=== PATIENT | female | born 1935 | race Hispanic/Latino ===

== ENCOUNTER 2017-02-03 18:32 | Emergency (ER) | payer MEDICARE ==
[2017-02-03 18:32] VITALS: BMI 38.6
[2017-02-03 18:45] VITALS: PULSE 89; O2SAT 97
--- NOTE | 2017-02-03 19:20 | ED PDOC ---
Lower Extremity Pain/Injury Time Seen by Provider: 02/03/17 19:05 Chief Complaint (Nursing): Lower Extremity Problem/Injury Chief Complaint (Provider): Right Foot Pain History Per: Patient History/Exam Limitations: no limitations Onset/Duration Of Symptoms: Hrs (just prior to arrival) Current Symptoms Are (Timing): Still Present Severity: Moderate Additional Complaint(s): Carola Stack is an 81 year old female, with a past medical history inclusive of HTN (coumadin compliant) and hyperlipidemia, who presents to the ED on 02/03/17 for the evaluation of moderate right foot pain that she has experienced since having fallen in her home earlier today as she was dusting a baseboard. Patient describes fall as her having tipped over secondary to her being unable to support her weight on the affected foot. Per son patient was able to ambulate a short distance since injury with the aid of a walker, though she reports using only a cane at baseline. Has medicated with Tylenol without relief. Of note, per son patient had fallen onto her buttocks at his house 2 weeks ago after stumbling down a set of deck stairs, no residual effects from injury. PMD: Dr. Greene Past Medical History Reviewed: Historical Data, Nursing Documentation, Vital Signs Vital Signs: Last Vital Signs Temp 98.8 F 02/03/17 18:43 Pulse 89 02/03/17 18:43 Resp 16 02/03/17 18:43 BP 186/80 H 02/03/17 18:43 Pulse Ox 97 02/03/17 18:43 - Medical History PMH: Deep Vein Thrombosis (left leg), HTN, Hyperlipidemia Denies: Depression - Surgical History Surgical History: Cholecystectomy - Family History Family History: States: Unknown Family Hx - Living Arrangements Living Arrangements: Alone (Senior Citizen Home) - Immunization History Hx Tetanus Toxoid Vaccination: No Hx Influenza Vaccination: Yes Hx Pneumococcal Vaccination: Yes - Home Medications Home Medications: Ambulatory Orders Medication Instructions Recorded Alprazolam [Xanax] 0.25 mg PO BID 10/31/13 Losartan/Hydrochlorothiazide 1 tab PO DAILY 01/18/15 [Losartan Potassium-Hydrochlorothiazide 12.5 M] Warfarin [Coumadin] 5 mg PO DAILY 01/18/15 Metoprolol Tartrate 50 mg PO DAILY 02/03/17 Walker [Rolling Walker] 1 dev XX PRN PRN #1 dev 02/03/17 - Allergies Allergies/Adverse Reactions: Allergies Allergy/AdvReac Type Severity Reaction Status Date / Time No Known Allergies Allergy Verified 02/03/17 18:43 Review of Systems Musculoskeletal: Positive for: Foot Pain (right) Physical Exam - Reviewed Nursing Documentation Reviewed: Yes Vital Signs Reviewed: Yes - Physical Exam Appears: Positive for: Non-toxic, No Acute Distress Extremity: Positive for: Tenderness (tenderness and ecchymosis noted to both medial/dorsal foot; b/l malleoli nontender). Negative for: Deformity Neurologic/Psych: Positive for: Alert, Oriented - ECG O2 Sat by Pulse Oximetry: 97 (RA) Pulse Ox Interpretation: Normal - Other Rad XR Right Ankle X-Ray: Interpreted by Me, Viewed By Me X-Ray Interpretation: see [facility] XR Right Foot X-Ray: Interpreted by Me, Viewed By Wa X-Ray Interpretation: see [facility] Medical Decision Making Medical Decision Makin:05 Initial Impression: foot contusion; will r/o fracture Initial Plan: * XR Right Ankle * XR Right Foot * Reevaluation XR show no evidence of fracture as reviewed by me. Will have podiatry evaluate patient at bedside. Scribe Attestation: Documented by Joyce Martínez, acting as a scribe for Leticia Lyn MD. Provider Scribe Attestation: All medical record entries made by the Scribe were at my direction and personally dictated by me. I have reviewed the chart and agree that the record accurately reflects my personal performance of the history, physical exam, medical decision making, and the department course for this patient. I have also personally directed, reviewed, and agree with the discharge instructions and disposition. Disposition - Clinical Impression Clinical Impression: Foot sprain - Disposition Referrals: Podiatry Clinic [Outside] Disposition: Routine/Home Disposition Time: 22:58 Condition: STABLE Additional Instructions: CONTINUE TYLENOL NEEDED FOR PAIN. FOLLOW-UP WITH PODIATRY CLINIC ON THURSDAY FOR REEVALUATION, CALL FOR APPOINTMENT. Prescriptions: Walker [Rolling Walker] 1 dev XX PRN PRN #1 dev PRN Reason: Pain, Mild (1-3) Instructions: Foot Sprain (ED)
--- NOTE | 2017-02-03 23:08 | CP.PCM.CON ---
History of Present Illness - History of Present Illness History of Present Illness: 81 year old female patient with PMHx of HTN, Hyperlipidemia was seen at bedside ED this evening after request for podiatry consultation. Patient states that she slipped and fell today at [facility], but does not recall exact orientation of right foot when she fell. She complains of mild pain to dorso- medial aspect of Right foot over the navicular, and points out mild bruising. Patient is present with her son and a grand daughter who states that she is able to ambulate with a rolling walker which she borrowed from her friend. Patient's son states that this is not the first time she fell while ambulating within a couple of months. She states that she has taken Tylenol for pain which helped to relieve pain. Patient has no other pedal complaints. Patient denies of any N/V/F/C or SOB today Past Patient History - Infectious Disease Hx of Infectious Diseases: None - Tetanus Immunizations Tetanus Immunization: Unknown - Past Social History Smoking Status: Never Smoked - CARDIAC Hx Hypertension: Yes - MUSCULOSKELETAL/RHEUMATOLOGICAL Hx Musculoskeletal Disorders: Yes Hx Falls: Yes - PSYCHIATRIC Hx Depression: No - SURGICAL HISTORY Hx Cholecystectomy: Yes - ANESTHESIA Hx Anesthesia: Yes Hx Anesthesia Reactions: No Meds Home Medications: Home Medication List Medication Instructions Recorded Confirmed Type Walker [Rolling Walker] 1 dev XX PRN PRN #1 dev 02/03/17 Rx Allergies/Adverse Reactions: Allergies Allergy/AdvReac Type Severity Reaction Status Date / Time No Known Allergies Allergy Verified 02/03/17 18:43 Physical Exam - Constitutional Appears: Well, Non-toxic, No Acute Distress - Extremities Exam Additional comments: Bilateral lower extremity exam DERM: No open wound noted. No active bleeding, no drainage. No erythema is noted. Mild ecchymosis is noted to dorso-medial aspect of Right foot at the level of navicular. VASC: Non-palpable DP and PT noted bilaterally secondary to chronic lymphedema. +2 pitting edema noted to bilateral lower extremities distal to knee. MOUSE BREEDER less than 3 seconds to all digits noted ORTHO: Pain on palpation to right mid-foot. Decreased ROM to joints distal to right ankle secondary to guarding. MMT 5/5 bilaterally NEURO: Gross sensation intact - Neurological Exam Neurological exam: Alert, Oriented x3 - Psychiatric Exam Psychiatric exam: Normal Affect, Normal Mood - Skin Skin Exam: Normal Color, Warm Results - Vital Signs Recent Vital Signs: Last Vital Signs Temp 98.8 F 02/03/17 18:43 Pulse 89 02/03/17 18:43 Resp 16 02/03/17 18:43 BP 166/84 H 02/03/17 19:52 Pulse Ox 97 02/03/17 22:01 Assessment & Plan - Assessment and Plan (Free Text) Assessment: 81 year old female patient presents with right foot sprain, pain and swelling Plan: Patient was seen, evaluated and treated with all questions and concerns addressed labs and vitals reviewed Xray of Right foot and ankle reveals no significant findings consistent with acute fracture discussed with attending Dr. Denise Modified Spann compression dressing applied to right lower extremity Surgical shoe applied to right foot Rx for walker given to patient per ED Patient was advised to weight bear as tolerated to right foot Patient was advised to keep the dressing clean dry and intact Patient to follow up with [facility] podiatry clinic this Thursday
[2017-02-03 23:47] VITALS: BP 166/82; RESP 18; TEMP 98.3
--- NOTE | 2017-02-04 14:25 | RAD ---
PROCEDURE: Right Ankle Radiographs. HISTORY: Fall injury COMPARISON: None FINDINGS: BONES: No acute fracture. Plantar and Achilles Tendon insertion calcaneal spurs JOINTS: Normal. No osteoarthritis. Ankle mortise maintained. Talar dome intact SOFT TISSUES: Lateral soft tissue swelling without adjacent distal fibular fracture. OTHER FINDINGS: None. IMPRESSION: Soft tissue swelling without acute articular or osseous abnormality.
--- NOTE | 2017-02-04 14:39 | RAD ---
PROCEDURE: Right Foot Radiographs. HISTORY: Trauma COMPARISON: None. FINDINGS: BONES: No acute fractures. JOINTS: Degenerative osteoarthritic changes. Multiple hammertoe sparing and SOFT TISSUES: Diffuse soft tissue swelling OTHER FINDINGS: None. IMPRESSION: Soft tissue swelling without acute articular or osseous abnormality.
== END 2017-02-03 23:45 | disposition home or self-care (01) ==
LOC: H.ER 18:32
DX: S99.911A Unspecified injury of right ankle, initial encounter (principal); W19.XXXA Unspecified fall, initial encounter; Y92.008 Other place in unspecified non-institutional (private) residence as the place of occurrence of the external cause; E78.5 Hyperlipidemia, unspecified; I10 Essential (primary) hypertension; Z79.01 Long term (current) use of anticoagulants; Z86.718 Personal history of other venous thrombosis and embolism

== ENCOUNTER 2017-04-25 17:57 | Inpatient (IN) | payer MEDICARE ==
[2017-04-25 17:57] VITALS: BMI 38.6
--- NOTE | 2017-04-25 18:47 | ED PDOC ---
HPI: Trauma/Fall - HPI Time Seen by Provider: 04/25/17 18:14 Chief Complaint (Nursing): Hip Pain Chief Complaint (Provider): Left buttock pain History Per: Patient Onset/Duration Of Symptoms: Days (x1, 04/24/17) Additional Complaint(s): Carola Stack is a 81 year old female with previous medical history of deep vein thrombosis and hypertension, who presents to the emergency department after a sudden onset of sharp, constant left buttock pain radiating to lower extremities after mechanical fall that occurred last night, 04/24/17. Denies any injury, numbness, weakness, urinary complaints or change in bowel movements. Stated that she was able to pull herself up to the couch but it is extremely painful to walk and took Tramadol (prescribed for post right foot surgery) with minimal relief of symptoms. PMD: Iman Greene MD Past Medical History Reviewed: Historical Data, Nursing Documentation, Vital Signs Vital Signs: Last Vital Signs Temp 97.9 F 04/27/17 09:00 Pulse 58 L 04/27/17 09:00 Resp 20 04/27/17 09:00 BP 161/80 H 04/27/17 09:00 Pulse Ox 98 04/27/17 09:00 - Medical History PMH: Deep Vein Thrombosis (left leg), HTN, Hyperlipidemia Denies: Depression - Surgical History Surgical History: Cholecystectomy - Family History Family History: States: Unknown Family Hx - Immunization History Hx Tetanus Toxoid Vaccination: No Hx Influenza Vaccination: Yes Hx Pneumococcal Vaccination: Yes - Home Medications Home Medications: Ambulatory Orders Medication Instructions Recorded Alprazolam [Xanax] 0.25 mg PO BID 10/31/13 Losartan/Hydrochlorothiazide 1 tab PO DAILY 01/18/15 [Losartan Potassium-Hydrochlorothiazide 12.5 M] Warfarin [Coumadin] 5 mg PO DAILY 01/18/15 Metoprolol Tartrate 50 mg PO DAILY 02/03/17 Cholecalciferol (Vitamin D3) 1 cap PO DAILY 04/25/17 [Vitamin D3] Lactobacillus Acidophilus 1 tab PO DAILY 04/25/17 [Acidophilus] Vitamin B Complex [B Complex] 1 tab PO DAILY 04/25/17 - Allergies Allergies/Adverse Reactions: Allergies Allergy/AdvReac Type Severity Reaction Status Date / Time No Known Allergies Allergy Verified 02/03/17 18:43 Review of Systems ROS Statement: Except As Marked, All Systems Reviewed And Found Negative (and as per HPI) Constitutional: Negative for: Other (injury) Gastrointestinal: Negative for: Other (change in bowels) Genitourinary Female: Negative for: Dysuria, Incontinence, Hematuria Musculoskeletal: Positive for: Other (sharp and constant left buttock pain radiating to lower extemities) Neurological: Negative for: Weakness, Numbness Physical Exam - Reviewed Nursing Documentation Reviewed: Yes Vital Signs Reviewed: Yes - Physical Exam Appears: Positive for: Well, Non-toxic, In Acute Distress (mild and painful) Head Exam: Positive for: ATRAUMATIC, NORMAL INSPECTION, NORMOCEPHALIC Skin: Positive for: Normal Color, Warm, Dry Eye Exam: Positive for: Normal appearance ENT: Positive for: Normal ENT Inspection Neck: Positive for: Normal, Painless ROM Cardiovascular/Chest: Positive for: Regular Rate, Rhythm. Negative for: Murmur Respiratory: Positive for: Normal Breath Sounds. Negative for: Crackles, Rales , Rhonchi, Wheezing Gastrointestinal/Abdominal: Positive for: Normal Exam, Bowel Sounds, Soft. Negative for: Tenderness, Distended, Guarding, Rebound Pelvic Exam: Positive for: External Exam Normal (pelvis stable). Negative for: Other (crepitus on pelvic rock) Back: Positive for: Vertebral Tenderness (left lumbar paraspinal). Negative for : Other (midline tenderness) Extremity: Positive for: Tenderness (left SI joint tenderness), Capillary Refill (2+), Other (left straight leg raise. 5/5 strength) Lymphatic: Negative for: Adenopathy Neurologic/Psych: Positive for: Alert, network security analyst II-XII (intact), Oriented. Negative for: Motor/Sensory Deficits - Laboratory Results Result Diagrams: 04/27/17 06:15 04/27/17 06:15 - ECG O2 Sat by Pulse Oximetry: 95 (RA) Pulse Ox Interpretation: Normal Medical Decision Making Medical Decision Making: Initial Impression: Fall; left buttock pain Differential diagnosis: Contusion, fracture, sciatica Initial Plan: * Type and screen * Labs * Xray hip with pelvis (left) * Xray LS spine AP/LAT * Re-evaluate [address] pelvis also w no acute fracture On reeval pt still in pain and unable to walk. Needs hospitalization for pain control and further management. [facility] DW pt findings and plan of care. Scribe Attestation: Documented by Marian Coker, acting as a scribe for Shi Brambila MD. Provider Scribe Attestation: All medical record entries made by the Scribe were at my direction and personally dictated by me. I have reviewed the chart and agree that the record accurately reflects my personal performance of the history, physical exam, medical decision making, and the department course for this patient. I have also personally directed, reviewed, and agree with the discharge instructions and disposition. Disposition - Clinical Impression Clinical Impression: Intractable back pain, Fall Counseled Patient/Family Regarding: Studies Performed, Diagnosis - Disposition Disposition Time: 21:00 Condition: SERIOUS - Pt Status Changed To: Hospital Disposition Of: Inpatient - Admit Certification Admit to Inpatient:: After my assessment, the patient will require hospitalization for at least two midnights. This is because of the severity of symptoms shown, intensity of services needed, and/or the medical risk in this patient being treated as an outpatient. - POA Present On Arrival: Falls Or Trauma
[2017-04-25 19:15] LABS: BASO % 0.3 % (0.0-2.0); EOS # 0.1 K/uL (0.0-0.7); EOS % 0.6 % (0.0-4.0); HEMOGLOBIN 12.7 g/dL (12.0-16.0); LYMPH # 1.3 K/uL (1.0-4.3); LYMPH % 14.6 % (20.0-40.0); MEAN CORPUSCULAR HEMOGLOBIN 32.2 pg (27.0-31.0); MEAN CORPUSCULAR HGB CONC 33.6 g/dL (33.0-37.0); MONO # 1.2 K/uL (0.0-0.8); MONO % 12.7 % (0.0-10.0); NEUT # 6.5 K/uL (1.8-7.0); NEUT % 71.8 % (50.0-75.0); RBC 3.94 Mil/uL (3.80-5.20); RED CELL DISTRIBUTION WIDTH 14.8 % (11.5-14.5); WHITE BLOOD COUNT 9.1 K/uL (4.8-10.8)
[2017-04-25 19:36] LABS: ALB/GLOB RATIO 1.3 (1.0-2.1); ALBUMIN 4.2 g/dL (3.5-5.0); CALCIUM 9.7 mg/dL (8.4-10.2)
[2017-04-25 19:40] LABS: PARTIAL THROMBOPLASTIN TIME 42.1 Seconds (25.6-37.1)
[2017-04-25 19:42] LABS: PROTHROMBIN TIME 46.9 Seconds (9.8-13.1)
--- NOTE | 2017-04-25 20:48 | CT ---
EXAM: CT Pelvis Without Intravenous Contrast CLINICAL HISTORY: 81 years old, female; Injury or trauma; Fall; Initial encounter; Laceration; Without foreign body; Bilateral; Pelvic region; Injury date: Today; Injury details: B/l pain lt > rt; Patient HX: Cholecystectomy. Dvt HTN. Falling; Additional info: Left pelvis pain R/O fracture TECHNIQUE: Axial computed tomography images of the pelvis without intravenous contrast. This CT exam was performed using one or more of the following dose reduction techniques: automated exposure control, adjustment of the mA and/or kV according to patient size, and/or use of iterative reconstruction technique. Coronal and sagittal reformatted images were created and reviewed. EXAM DATE/TIME: 04/25/2017 7:42 PM COMPARISON: Recent pelvic radiographs. FINDINGS: BONES/JOINTS: Degenerative changes at the pubic symphysis, the bilateral sacroiliac joints, and at L5-S1. No acute fractures are seen. No evidence of acute dislocation. No evidence of significant widening of the pubic symphysis or sacroiliac joints. SOFT TISSUES:No acute abnormality of the visualized soft tissues is seen. No evidence of soft tissue hematoma. VASCULATURE: Atherosclerotic calcification. STOMACH AND BOWEL: Extensive colonic diverticulosis, without evidence of acute diverticulitis. BLADDER: No acute abnormality of the bladder identified. REPRODUCTIVE: No acute abnormality of the uterus identified. No evidence of large adnexal masses. IMPRESSION: - No acute fractures identified. - See above for remaining findings.
[2017-04-25 23:09] LABS: SQUAMOUS EPITHIAL 1 /hpf (0-5); URINE BACTERIA RARE (<OCC); URINE BILIRUBIN NEGATIVE (NEGATIVE); URINE BLOOD LARGE (NEGATIVE); URINE CLARITY SLIGHTY-CLOUDY (Clear); URINE COLOR YELLOW (YELLOW); URINE GLUCOSE (UA) NEG (Normal); URINE LEUKOCYTE ESTERASE MOD Leu/uL (Negative); URINE NITRATE POSITIVE (NEGATIVE); URINE PROTEIN NEGATIVE (NEGATIVE); URINE UROBILINOGEN 0.2-1.0 mg/dL (0.2-1.0)
[2017-04-26 07:39] LABS: HEMOGLOBIN 12.6 g/dL (12.0-16.0); MEAN CELL VOLUME 97.7 fl (81.0-99.0); MEAN CORPUSCULAR HEMOGLOBIN 32.5 pg (27.0-31.0); MEAN CORPUSCULAR HGB CONC 33.3 g/dL (33.0-37.0); RBC 3.86 Mil/uL (3.80-5.20); WHITE BLOOD COUNT 8.2 K/uL (4.8-10.8)
[2017-04-26 07:59] LABS: ALB/GLOB RATIO 1.3 (1.0-2.1); ALBUMIN 3.7 g/dL (3.5-5.0); CALCIUM 9.3 mg/dL (8.4-10.2); INR 3.9 (0.9-1.2); PARTIAL THROMBOPLASTIN TIME 46.3 Seconds (25.6-37.1)
[2017-04-26 08:01] LABS: PROTHROMBIN TIME 45.6 Seconds (9.8-13.1)
[2017-04-26] MEDS: Multivitamin Vitamin B Complex (Nephro-Vite) Tab PO SCH (08:36)
[2017-04-26] MEDS: Lactobacillus Acidophilus 500 MU Cap PO SCH (08:36)
[2017-04-26] MEDS: HCTZ/Losartan 12.5/50 Tab PO SCH (08:36)
[2017-04-26] MEDS ORDERED: VITAMIN B COMPLEX PO SCH (09:00)
[2017-04-26] MEDS ORDERED: METOPROLOL TARTRATE 50 MG PO SCH (09:00)
[2017-04-26] MEDS ORDERED: CHOLECALCIFEROL PO SCH (09:00)
[2017-04-26] MEDS ORDERED: LACTOBACILLUS ACIDOPHILUS PO SCH (09:00)
--- NOTE | 2017-04-26 09:51 | CP.PCM.PN ---
Subjective - Date & Time of Evaluation Date of Evaluation: 04/26/17 Time of Evaluation: 09:50 - Subjective Subjective: full consult dictated Ordered MRI of L spine Suggest conservative tx unless otherwise indicated by MRI Will follow after MRI Objective - Vital Signs/Intake and Output Vital Signs (last 24 hours): Temp Pulse Resp BP Pulse Ox 98.0 F 75 18 135/69 91 L 04/26/17 07:40 04/26/17 08:36 04/26/17 07:40 04/26/17 08:36 04/26/17 07:40 - Medications Medications: Current Medications Alprazolam (Xanax) 0.25 mg PO BID [facility] Stop: 05/02/17 22:31 Last Admin: 04/26/17 08:38 Dose: Not Given Cholecalciferol (Vitamin D) 2,000 iu PO DAILY [facility] Last Admin: 04/26/17 08:37 Dose: 2,000 iu HCTZ/Losartan Potassium (Hyzaar 12.5 Mg-50 Mg) 1 tab PO DAILY [facility] Last Admin: 04/26/17 08:36 Dose: 1 tab Hydromorphone HCl (Dilaudid) 2 mg IVP Q6 PRN PRN Reason: Pain, moderate (4-7) Last Admin: 04/26/17 03:27 Dose: 2 mg Lactobacillus Acidophilus (Bacid Acidophilus) 1 cap PO DAILY [facility] Last Admin: 04/26/17 08:36 Dose: 1 cap Metoprolol Tartrate (Lopressor) 50 mg PO DAILY [facility] Last Admin: 04/26/17 08:36 Dose: 50 mg Vitamin B Complex/Vit C/Folic Acid (Nephro-Ruba) 1 tab PO DAILY [facility] Last Admin: 04/26/17 08:36 Dose: 1 tab Warfarin Sodium (Coumadin) 5 mg PO QD5 ONE PRN Reason: Protocol Stop: 04/26/17 17:01 - Labs Labs: 04/26/17 06:00 04/26/17 06:00 PT 45.6 Seconds (9.8-13.1) H* 04/26/17 06:00 INR 3.9 (0.9-1.2) H 04/26/17 06:00 APTT 46.3 Seconds (25.6-37.1) H 04/26/17 06:00
--- NOTE | 2017-04-26 15:06 | RAD ---
HISTORY: fall COMPARISON: No prior study available for comparison FINDINGS: LUNGS: Mild bibasilar atelectasis. . PLEURA: No obvious pneumothorax seen. CARDIOVASCULAR: Mild cardiomegaly OSSEOUS STRUCTURES: Mild degenerative changes both acromioclavicular joints. VISUALIZED UPPER ABDOMEN: Normal. OTHER FINDINGS: None. IMPRESSION: Infiltrates mild bibasilar atelectasis.
--- NOTE | 2017-04-26 15:08 | RAD ---
PROCEDURE: Left Hip X-ray Radiographs. HISTORY: LEFT hip back pain s/p fall COMPARISON: None. FINDINGS: BONES: Normal. No fracture. JOINTS: Normal. SOFT TISSUES: Normal. OTHER FINDINGS: Mild degenerative spondylosis of the lumbosacral spine. . There is a small metallic clip overlying the right inferior true pelvis. Clinical correlation surgical history. Moderate amount of stool seen throughout colon consistent with constipation IMPRESSION: No evidence of acute displaced fracture nor dislocation.
--- NOTE | 2017-04-26 15:09 | RAD ---
PROCEDURE: Radiographs of the Lumbar Spine. HISTORY: LEFT hip back pain s/p fall COMPARISON: No prior. FINDINGS: BONES: No acute fractures. Vertebral bodies exhibit relatively normal stature. Mild anterior subluxation L4 over L5. Vertebral bodies and facets otherwise normally aligned. DISC SPACES: Multilevel degenerative spondylosis. Changes include varying degrees of disc space narrowing with endplate eburnation and anterolateral osteophyte formation. Changes most notably affect the L3-L4 and L5-S1 levels. OTHER FINDINGS: Large amount of stool seen throughout the colon consistent with constipation. Metallic clips right upper quadrant gliotic consistent with prior cholecystectomy. IMPRESSION: No acute fractures. Multilevel degenerative spondylosis. Mild anterior subluxation L4 over L5. .
[2017-04-27 07:04] LABS: HEMOGLOBIN 13.4 g/dL (12.0-16.0); MEAN CELL VOLUME 97.6 fl (81.0-99.0); MEAN CORPUSCULAR HEMOGLOBIN 32.1 pg (27.0-31.0); MEAN CORPUSCULAR HGB CONC 32.9 g/dL (33.0-37.0); RBC 4.18 Mil/uL (3.80-5.20); RED CELL DISTRIBUTION WIDTH 14.6 % (11.5-14.5); WHITE BLOOD COUNT 12.6 K/uL (4.8-10.8)
[2017-04-27 07:35] LABS: ALB/GLOB RATIO 1.1 (1.0-2.1); ALBUMIN 4.1 g/dL (3.5-5.0); CALCIUM 9.6 mg/dL (8.4-10.2)
[2017-04-27] MEDS: HCTZ/Losartan 12.5/50 Tab PO SCH (08:47)
[2017-04-27] MEDS: Multivitamin Vitamin B Complex (Nephro-Vite) Tab PO SCH (08:50)
[2017-04-27] MEDS: Lactobacillus Acidophilus 500 MU Cap PO SCH (08:56)
[2017-04-27 10:10] LABS: INR 4.9 (0.9-1.2)
[2017-04-27 10:12] LABS: PROTHROMBIN TIME 57.3 Seconds (9.8-13.1)
[2017-04-27] MEDS: Azithromycin 500 MG in Sodium Chloride 0.9% 250 ML IVPB SCH (12:40)
--- NOTE | 2017-04-27 17:07 | MRI ---
PROCEDURE: MR LUMBAR SPINE WITHOUT CONTRAST HISTORY: sciatic pain l leg COMPARISON: None available. TECHNIQUE: Multiecho multiplanar sequences were performed through the lumbar spine without the use of intravenous contrast. FINDINGS: There is grade 1 approximately 4 millimeter anterior spondylolisthesis of L4 relative to L5. There is mild compression deformity at the superior endplate of L1 associated with mild bone marrow edema likely acute or subacute. Heterogeneous bone marrow signal seen at the L3-L4 likely due to severe degenerative changes P Conus medullaris unremarkable at the level of L1 There is large cystic lesion seen at the right kidney T12-L1: No disc herniation, spinal canal stenosis or neural foraminal narrowing. L1-2: No disc herniation, spinal canal stenosis or neural foraminal narrowing. L2-3: Small broad-based disc bulging seen associated with significant posterior ligament and facet joint hypertrophy which resulting in mild spinal stenosis. L3-4: Small to moderate-sized disc herniation associated with posterior ligament and facet joint hypertrophy which resulting in mild to moderate thecal sac narrowing. Mild bilateral neural foraminal narrowing is also noted. There is severe narrowing of the intervertebral disc is space. L4-5: There is small to moderate size disc herniation associated with posterior ligament and facet joint hypertrophy which resulting in moderate thecal sac narrowing. There is moderate left neural foraminal narrowing seen at this level. Mild right neural foraminal narrowing is also seen. L5-S1: No disc herniation, spinal canal stenosis or neural foraminal narrowing. Partial sacralization of the L5 is noted. OTHER FINDINGS: None. IMPRESSION: Moderate to severe spondylosis more prominent at L3-L4 and L4-L5. Grade 1 mild approximately 4 millimeter anterior spondylolisthesis of L4 relative to L5. Small to moderate size disc herniation at L3-L4 associated with posterior ligament and facet joint hypertrophy which resulting in [id number] spinal stenosis. Moderate size disc herniation at L4-L5 associated with posterior ligament and facet joint hypertrophy which resulting in moderate to severe spinal and moderate left neural foraminal narrowing. Bone marrow edema at the superior endplate of L1 likely due to acute or subacute compression deformity.
[2017-04-28] MEDS: Lactobacillus Acidophilus 500 MU Cap PO SCH (08:46)
[2017-04-28] MEDS: Multivitamin Vitamin B Complex (Nephro-Vite) Tab PO SCH (08:47)
[2017-04-28] MEDS: HCTZ/Losartan 12.5/50 Tab PO SCH (08:47)
[2017-04-28] MEDS: Azithromycin 500 MG in Sodium Chloride 0.9% 250 ML IVPB SCH (08:48)
--- NOTE | 2017-04-28 09:06 | CP.PCM.PN ---
Subjective - Date & Time of Evaluation Date of Evaluation: 04/28/17 Time of Evaluation: 09:04 - Subjective Subjective: reviewed MRI of L spine Spinal stenosis L2/3 to L4/5 She has not had, as she reported to me, any conservative therapy. Suggest PT both inpatient and outpatient. If that does not resolve her pain satisfactorily then suggest pain management for LESI Should not consider surgery as first treatment option. Objective - Vital Signs/Intake and Output Vital Signs (last 24 hours): Temp Pulse Resp BP Pulse Ox 98.3 F 94 H 20 145/69 93 L 04/28/17 00:52 04/28/17 08:47 04/28/17 00:52 04/28/17 08:47 04/28/17 00:52 - Medications Medications: Current Medications Alprazolam (Xanax) 0.25 mg PO BID [facility] Stop: 05/02/17 22:31 Last Admin: 04/28/17 08:47 Dose: 0.25 mg Cholecalciferol (Vitamin D) 2,000 iu PO DAILY [facility] Last Admin: 04/28/17 08:48 Dose: 2,000 iu HCTZ/Losartan Potassium (Hyzaar 12.5 Mg-50 Mg) 1 tab PO DAILY [facility] Last Admin: 04/28/17 08:47 Dose: 1 tab Azithromycin 500 mg/ Sodium (Chloride) 250 mls @ 250 mls/hr IVPB DAILY [facility] Last Admin: 04/28/17 08:48 Dose: 250 mls/hr Ceftriaxone Sodium 1 gm/ (Sodium Chloride) 100 mls @ 100 mls/hr IVPB DAILY [facility] Last Admin: 04/28/17 08:48 Dose: 100 mls/hr Lactobacillus Acidophilus (Bacid Acidophilus) 1 cap PO DAILY [facility] Last Admin: 04/28/17 08:46 Dose: 1 cap Metoprolol Tartrate (Lopressor) 50 mg PO DAILY [facility] Last Admin: 04/28/17 08:47 Dose: 50 mg Tramadol HCl (Ultram) 50 mg PO Q6 PRN PRN Reason: Pain, moderate (4-7) Last Admin: 04/27/17 10:14 Dose: 50 mg Vitamin B Complex/Vit C/Folic Acid (Nephro-Ruba) 1 tab PO DAILY [facility] Last Admin: 04/28/17 08:47 Dose: 1 tab - Labs Labs: 04/27/17 06:15 04/27/17 06:15 PT 57.3 Seconds (9.8-13.1) H* 04/27/17 09:30 INR 4.9 (0.9-1.2) H D 04/27/17 09:30 APTT 46.3 Seconds (25.6-37.1) H 04/26/17 06:00
[2017-04-28 10:07] LABS: MEAN CELL VOLUME 97.1 fl (81.0-99.0); RBC 4.36 Mil/uL (3.80-5.20); RED CELL DISTRIBUTION WIDTH 14.4 % (11.5-14.5)
[2017-04-28 10:13] LABS: PROTHROMBIN TIME 25.6 Seconds (9.8-13.1)
[2017-04-28 10:14] LABS: INR 2.2 (0.9-1.2); PARTIAL THROMBOPLASTIN TIME 35.7 Seconds (25.6-37.1)
[2017-04-28 10:17] LABS: ALB/GLOB RATIO 1.2 (1.0-2.1); ALBUMIN 4.1 g/dL (3.5-5.0); ALT/SGPT 88 U/L (9-52); AST/SGOT 93 U/L (14-36); BLOOD UREA NITROGEN 23 mg/dl (7-17); CALCIUM 9.8 mg/dL (8.4-10.2); GFR AFRICAN-AMERICAN > 60; GFR NON-AFRICAN AMERICAN 53
[2017-04-28] MEDS ORDERED: Potassium Chloride 20 mEq ER Tab PO ONE (12:06)
[2017-04-28 13:33] VITALS: BP 113/71; PULSE 75; RESP 18; TEMP 98; O2SAT 95
--- NOTE | 2017-04-28 14:18 | CP.PCM.PN ---
<Javy Carbone - Last Filed: 04/28/17 14:10> Subjective - Date & Time of Evaluation Date of Evaluation: 04/28/17 Time of Evaluation: 07:20 - Subjective Subjective: pt seen and examined at bedside. No acute events overnight. Lying in bed comfortably, NAD. Pain controlled with medications. Tolerating PO intake. No new complaints. MRI reviewed, no acute fractures. Denies fever/chills, headaches , CP/SOB/Palpitations, N/V/D/C. Objective - Vital Signs/Intake and Output Vital Signs (last 24 hours): Temp Pulse Resp BP Pulse Ox 98 F 75 18 113/71 95 04/28/17 12:00 04/28/17 12:00 04/28/17 12:00 04/28/17 12:00 04/28/17 12:00 - Medications Medications: Current Medications Alprazolam (Xanax) 0.25 mg PO BID [facility] Stop: 05/02/17 22:31 Last Admin: 04/28/17 08:47 Dose: 0.25 mg Cholecalciferol (Vitamin D) 2,000 iu PO DAILY [facility] Last Admin: 04/28/17 08:48 Dose: 2,000 iu HCTZ/Losartan Potassium (Hyzaar 12.5 Mg-50 Mg) 1 tab PO DAILY [facility] Last Admin: 04/28/17 08:47 Dose: 1 tab Azithromycin 500 mg/ Sodium (Chloride) 250 mls @ 250 mls/hr IVPB DAILY [facility] Last Admin: 04/28/17 08:48 Dose: 250 mls/hr Ceftriaxone Sodium 1 gm/ (Sodium Chloride) 100 mls @ 100 mls/hr IVPB DAILY [facility] Last Admin: 04/28/17 08:48 Dose: 100 mls/hr Lactobacillus Acidophilus (Bacid Acidophilus) 1 cap PO DAILY [facility] Last Admin: 04/28/17 08:46 Dose: 1 cap Metoprolol Tartrate (Lopressor) 50 mg PO DAILY [facility] Last Admin: 04/28/17 08:47 Dose: 50 mg Tramadol HCl (Ultram) 50 mg PO Q6 PRN PRN Reason: Pain, moderate (4-7) Last Admin: 04/28/17 12:29 Dose: 50 mg Vitamin B Complex/Vit C/Folic Acid (Nephro-Ruba) 1 tab PO DAILY [facility] Last Admin: 04/28/17 08:47 Dose: 1 tab - Labs Labs: 04/28/17 09:10 04/28/17 09:10 PT 25.6 Seconds (9.8-13.1) H D 04/28/17 09:10 INR 2.2 (0.9-1.2) H D 04/28/17 09:10 APTT 35.7 Seconds (25.6-37.1) D 04/28/17 09:10 - Constitutional Appears: Non-toxic, No Acute Distress - ENT Exam ENT Exam: Mucous Membranes Moist - Respiratory Exam Respiratory Exam: Clear to Ausculation Bilateral, NORMAL BREATHING PATTERN. absent: Accessory Muscle Use, Decreased Breath Sounds, Rhonchi, Wheezes - Cardiovascular Exam Cardiovascular Exam: REGULAR RHYTHM, RRR, +S1, +S2. absent: JVD, Rubs - GI/Abdominal Exam GI & Abdominal Exam: Soft, Normal Bowel Sounds. absent: Tenderness - Back Exam Back Exam: paraspinal tenderness, vertebral tenderness - Neurological Exam Neurological Exam: Alert, CN II-XII Intact, Oriented x3 Assessment and Plan (1) Spondylolysis of lumbar region Assessment & Plan: -MRI reviewed -pt seen by neurosurgery, no surgical intervention -conservative tx at this time -PT Eval and tx, awaiting recommendations for TCU or subacute Status: Acute <Meek,Moisés K - Last Filed: 05/07/17 16:32> Objective - Vital Signs/Intake and Output Vital Signs (last 24 hours): Temp Pulse Resp BP Pulse Ox 98 F 75 18 113/71 95 04/28/17 12:00 04/28/17 12:00 04/28/17 12:00 04/28/17 12:00 04/28/17 12:00 - Labs Labs: 04/28/17 09:10 04/28/17 09:10 PT 25.6 Seconds (9.8-13.1) H D 04/28/17 09:10 INR 2.2 (0.9-1.2) H D 04/28/17 09:10 APTT 35.7 Seconds (25.6-37.1) D 04/28/17 09:10 Assessment and Plan - Assessment and Plan (Free Text) Assessment: Patient was personally seen and examined by me in rounds with residents. Available labs and diagnostic data reviewed. Case, patient's condition and management plan discussed with residents in rounds. Agree with resident's progress note. Plan: As ordered.
--- NOTE | 2017-04-28 15:08 | CARD ---
APPROVED REPORT EKG Measurement Heart [id number] <Conclusion> Sinus tachycardia Left anterior fascicular block Nonspecific ST abnormality Abnormal ECG
--- NOTE | 2017-05-08 14:48 | CON ---
Physician - Breezy Quijano Pt - Carola Stack HPI 81 year old woman came to the ER for swelling in her right foot and leg. Not sure when her leg started swelling. Constant pain in her left buttock radiating down to her left leg starting last night after a fall, extreme pain when walking no numbness or weakness, urinary problems & bowel movement dysfunction. Pt has had Chronic back pain for many years, has had multiple falls over the years. Pts history is not coherent hard to tell what exact issues are based on her verbage. PMHx DVT, HTN, Tima Merchercer disease, Bladder issues, bowel issues No treatment for back issues Exams Findings 20 degree straight leg raising on the left all other strengths are normal, Pt was not ambulated. Labs Hip and Pelvis XR not yet read. 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 Provided that significant findings on MRI will not benefit therapy. Considering pain management before surgery. Breezy Quijano MD [facility]
--- NOTE | 2017-05-08 15:39 | PN ---
Dr. Moisés Meek Patient seen in examining room____ ____Need of surgical tonsils intervention (?) HPI: Pt stills complains of back pain, no bowel dysfunction, ROS: Patient denies any chest pain, no SOB. PE: patient is in no acute distress, vital signs are stable. Heart: S1 S2 normal ____ Lungs: Good bilateral exchange. Abdomen: Soft, non-tender. Extremities: No edema, ____no tenderness, no ischemia. Diagnostic detail: for now patient is medically stable. Moisés Meek MDD
== END 2017-04-28 16:34 | DRG 552 ==
LOC: H.ER 17:57 → H.ERHOLD 21:20 → H.MEDSURG1 22:06
PROVIDERS: ADMIT Internal Medicine; ATTEND Internal Medicine
DX: M47.816 Spondylosis without myelopathy or radiculopathy, lumbar region (principal); I10 Essential (primary) hypertension; W19.XXXA Unspecified fall, initial encounter; E78.5 Hyperlipidemia, unspecified; Z86.718 Personal history of other venous thrombosis and embolism; Z79.01 Long term (current) use of anticoagulants; Y93.9 Activity, unspecified; Y92.9 Unspecified place or not applicable

== ENCOUNTER 2017-04-28 16:08 | Inpatient (IN) | payer OTHER, MEDICARE ==
[2017-04-28 16:16] VITALS: BMI 34.3
[2017-04-28] MEDS ORDERED: Tuberculin 5 Units/0.1 ml Inj ID ONE (17:57)
[2017-04-28 19:51] VITALS: RESP 20
[2017-04-29] MEDS: Lactobacillus Acidophilus 500 MU Cap PO SCH ×2 (08:37→16:44)
[2017-04-29] MEDS: HCTZ/Losartan 12.5/50 Tab PO SCH (08:38)
[2017-04-29] MEDS: Multivitamin Vitamin B Complex (Nephro-Vite) Tab PO SCH (08:38)
[2017-04-29] MEDS ORDERED: cefTRIAXone IV 1 gm in Dextros 50 ML BAG IVPB SCH (09:00)
[2017-04-29] MEDS ORDERED: cefTRIAXone 1 gm/NS 100ML IVPB SCH (09:00)
[2017-04-29] MEDS ORDERED: AZITHROMYCIN 500 MG/NS 250 ML IVPB SCH (09:00)
--- NOTE | 2017-04-29 14:56 | RAD ---
PROCEDURE: Radiographs of the Right Shoulder HISTORY: right shoulder pain COMPARISON: No prior. FINDINGS: BONES: Normal. No fracture. JOINTS: Normal glenohumeral articulation. Mild acromioclavicular degenerative arthritis. SOFT TISSUES: Normal. OTHER FINDINGS: None. IMPRESSION: Mild acromioclavicular degenerative arthritis. Otherwise unremarkable.
[2017-04-29] MEDS: cefTRIAXone 1 gm/NS 100ML IVPB SCH (16:42)
[2017-04-29] MEDS: AZITHROMYCIN 500 MG/NS 250 ML IVPB SCH (16:43)
[2017-04-30] MEDS: Lactobacillus Acidophilus 500 MU Cap PO SCH ×2 (08:27→16:52)
[2017-04-30] MEDS: HCTZ/Losartan 12.5/50 Tab PO SCH (08:27)
[2017-04-30] MEDS: Multivitamin Vitamin B Complex (Nephro-Vite) Tab PO SCH (08:28)
--- NOTE | 2017-04-30 15:15 | CP.PCM.CON ---
History of Present Illness - History of Present Illness History of Present Illness: 81 yo female admitted with intractible pain from spinal stenosis Lumbar spine referred for ID eval of UTI PMH- HTN, Obesity, OA, Spinal stenosis , DVT SH no IVDA FH N/C NKDA Review of Systems - Constitutional Constitutional: As Per HPI, Malaise - EENT Eyes: absent: As Per HPI, Blind Spots, Blurred Vision, Change in Vision, Decreased Night Vision, Diplopia, Discharge, Dry Eye, Exophthalmos, Floaters, Irritation, Itchy Eyes, Loss of Peripheral Vision, Pain, Photophobia, Requires Corrective Lenses, Sees Flashes, Spots in Vision, Tunnel Vision, Other Visual Disturbances, Loss of Vision, Other Ears: absent: As Per HPI, Decreased Hearing, Ear Discharge, Ear Pain, Tinnitus, Abnormal Hearing, Disequilibrium, Dizziness, Other Nose/Mouth/Throat: absent: As Per HPI, Epistaxis, Nasal Congestion, Nasal Discharge, Nasal Obstruction, Nasal Trauma, Nose Pain, Post Nasal Drip, Sinus Pain, Sinus Pressure, Bleeding Gums, Change in Voice, Dental Pain, Dry Mouth, Dysphagia, Halitosis, Hoarsness, Lip Swelling, Mouth Lesions, Mouth Pain, Odynophagia, Sore Throat, Throat Swelling, Tongue Swelling, Facial Pain, Neck Pain, Neck Mass, Other - Breasts Breasts: absent: As Per HPI, Change in Shape, Mass, Pain, Nipple Discharge, Nipple Inversion, Skin Changes, Swelling, Other - Cardiovascular Cardiovascular: absent: As Per HPI, Acrocyanosis, Chest Pain, Chest Pain at Rest , Chest Pain with Activity, Claudication, Diaphoresis, Dyspnea, Dyspnea on Exertion, Edema, Irregular Heart Rhythm, Pain Radiating to Arm/Neck/Jaw, Leg Edema, Leg Ulcers, Lightheadedness, Orthopnea, Palpitations, Paroxysmal Nocturnal Dyspnea, Pedal Edema, Radiating Pain, Rapid Heart Rate, Slow Heart Rate, Syncope, Other - Respiratory Respiratory: absent: As Per HPI, Cough, Dyspnea, Hemoptysis, Dyspnea on Exertion , Wheezing, Snoring, Stridor, Pain on Inspiration, Chest Congestion, Excessive Mucous Production, Change in Mucous Color, Pain with Coughing, Other - Gastrointestinal Gastrointestinal: absent: As Per HPI, Abdominal Pain, Belching, Bloating, Change in Bowel Habits, Change in Stool Character, Coffee Ground Emesis, Constipation, Cramping, Diarrhea, Dyspepsia, Dysphagia, Early Satiety, Excessive Flatus, Fecal Incontinence, Heartburn, Hematemesis, Hematochezia, Loose Stools, Melena, Nausea, Odynophagia, Temesmus, Vomiting, Other - Genitourinary Genitourinary: As Per HPI, Difficulty Urinating, Dysuria, Urinary Frequency - Reproductive: Female Reproductive:Female: absent: As Per HPI, Amenorrhea, Amenorrhea/ Control, Currently Menstual, Cycle <21 Days, Cycle >35 Days, Cycle Variable, Menses 1-7 Days, Menses >/= 8 Days, Menses Variable, Cycle > 4 Weeks Between, No Menses for 6 Months, Heavy Menses, Light Menses, Normal Menses, Spotting Between Cycles , S/P Hysterectomy, Menopausal, Post Menopausal, Premenarche, Abnormal Vaginal Bleeding, Dysmenorrhea, Dyspareunia, Genital Lesions, Genital Pruritis, Pelvic Pain, Prolapse Symptoms, Sexual Dysfunction, Vaginal Discharge, Vaginal Dryness , Vaginal Odor, Vaginal Pruritis, Other - Menstruation Menstruation: absent: As Per HPI, Amenorrhea, Amenorrhea/ Control, Currently Menstual, Cycle <21 Days, Cycle >35 Days, Cycle Variable, Menses 1-7 Days, Menses >/= 8 Days, Menses Variable, Cycle > 4 Weeks Between, No Menses for 6 Months, Heavy Menses, Light Menses, Normal Menses, Spotting Between Cycles , S/P Hysterectomy, Menopausal, Post Menopausal, Premenarche, Abnormal Vaginal Bleeding, Dysmenorrhea, Other - Musculoskeletal Musculoskeletal: As Per HPI, Limited Range of Motion, Muscle Weakness, Radiating Pain into Limb, Stiffness, Tingling - Integumentary Integumentary: absent: As Per HPI, Acne, Alopecia, Bleeding Lesions, Change in Hair, Change in Nails, Change in Pigmentation, Changing Lesions, Dry Skin, Erythema, Furuncle, Hirsutism, Lesions, New Lesions, Non-Healing Lesions, Photosensitivity, Pruritus, Rash, Skin Pain, Skin Ulcer, Sores, Striae, Swelling , Unusual Bruising, Wounds, Jaundice, Other - Neurological Neurological: absent: As Per HPI, Abnormal Gait, Abnormal Hearing, Abnormal Movements, Abnormal Speech, Behavioral Changes, Burning Sensations, Confusion, Convulsions, Disequilibrium, Dizziness, Numbness, Focal Weakness, Frequent Falls , Headaches, Lack of Coordination, Loss of Vision, Memory Loss, Paresthesias, Radicular Pain, Restless Legs, Sensory Deficit, Syncope, Tingling, Tremor, Vertigo, Weakness, Other Visual Disturbances, Other - Psychiatric Psychiatric: absent: As Per HPI, Abnormal Sleep Pattern, Anhedonia, Anxiety, Auditory Hallucinations, Behavioral Changes, Change in Appetite, Change in Libido, Confusion, Depression, Difficulty Concentrating, Hallucinations, Homicidal Ideation, Hopelessness, Irritability, Memory Loss, Mood Swings, Panic Attacks, Paranoia, Suicidal Ideation, Visual Hallucinations, Tactile Hallucinations, Other - Endocrine Endocrine: absent: As Per HPI, Change in Body Appearance, Change in Libido, Cold Intolorance, Deepening of Voice, Excessive Sweating, Fatigue, Flushing, Heat Intolorance, Increase in Ring/Shoe/Hat Size, Palpitations, Polydipsia, Polyphagia, Polyuria, Other - Hematologic/Lymphatic Hematologic: absent: As Per HPI, Easy Bleeding, Easy Bruising, Lymphadenopathy, Other Past Patient History - Infectious Disease Hx of Infectious Diseases: None - Tetanus Immunizations Tetanus Immunization: Unknown - Past Medical History & Family History Past Medical History?: Yes - Past Social History Smoking Status: Never Smoked - CARDIAC Hx Hypertension: Yes - PULMONARY Hx Respiratory Disorders: No - NEUROLOGICAL Hx Neurological Disorder: No - HEENT Hx HEENT Problems: No - RENAL Hx Chronic Kidney Disease: No - ENDOCRINE/METABOLIC Hx Endocrine Disorders: No - HEMATOLOGICAL/ONCOLOGICAL Hx Blood Disorders: No Hx AIDS: No Hx Human Immunodeficiency Virus (HIV): No Other/Comment: DVT -left leg - INTEGUMENTARY Hx Dermatological Problems: No - MUSCULOSKELETAL/RHEUMATOLOGICAL Hx Falls: Yes (in 3 months fall x10) - GASTROINTESTINAL Hx Gastrointestinal Disorders: No - GENITOURINARY/GYNECOLOGICAL Hx Genitourinary Disorders: No - PSYCHIATRIC Hx Depression: No Hx Substance Use: No - SURGICAL HISTORY Hx Cholecystectomy: Yes Other/Comment: dvt - ANESTHESIA Hx Anesthesia: Yes Hx Anesthesia Reactions: No Hx Malignant Hyperthermia: No Meds Allergies/Adverse Reactions: Allergies Allergy/AdvReac Type Severity Reaction Status Date / Time No Known Allergies Allergy Verified 04/28/17 16:15 - Medications Medications: Current Medications Alprazolam (Xanax) 0.25 mg PO Q12 [facility] Stop: 05/05/17 21:01 Last Admin: 04/30/17 08:28 Dose: 0.25 mg Cholecalciferol (Vitamin D) 2,000 iu PO DAILY [facility] Last Admin: 04/30/17 08:28 Dose: 2,000 iu HCTZ/Losartan Potassium (Hyzaar 12.5 Mg-50 Mg) 1 tab PO DAILY [facility] Last Admin: 04/30/17 08:27 Dose: 1 tab Azithromycin 500 mg/ Sodium (Chloride) 250 mls @ 250 mls/hr IVPB DAILY@1700 [facility] Last Admin: 04/29/17 16:43 Dose: 250 mls/hr Ceftriaxone Sodium 1 gm/ (Sodium Chloride) 100 mls @ 100 mls/hr IVPB DAILY@ 1700 [facility] Last Admin: 04/29/17 16:42 Dose: 100 mls/hr Lactobacillus Acidophilus (Bacid Acidophilus) 1 cap PO BID [facility] Last Admin: 04/30/17 08:27 Dose: 1 cap Lactulose (Enulose) 20 gm PO DAILY PRN PRN Reason: Constipation Metoprolol Tartrate (Lopressor) 50 mg PO DAILY [facility] Last Admin: 04/30/17 08:27 Dose: 50 mg Tramadol HCl (Ultram) 50 mg PO Q6 PRN PRN Reason: Pain, moderate (4-7) Last Admin: 04/30/17 13:16 Dose: 50 mg Vitamin B Complex/Vit C/Folic Acid (Nephro-Ruba) 1 tab PO DAILY [facility] Last Admin: 04/30/17 08:28 Dose: 1 tab Warfarin Sodium (Coumadin) 3 mg PO ONCE ONE PRN Reason: Protocol Stop: 04/30/17 17:01 Physical Exam - Constitutional Appears: Non-toxic, Chronically Ill - Head Exam Head Exam: NORMOCEPHALIC - Eye Exam Eye Exam: PERRL. absent: Scleral icterus - ENT Exam ENT Exam: Mucous Membranes Dry, Normal External Ear Exam - Neck Exam Neck exam: Negative for: Lymphadenopathy, Thyromegaly - Respiratory Exam Respiratory Exam: Decreased Breath Sounds, Clear to Auscultation Bilateral - Cardiovascular Exam Cardiovascular Exam: REGULAR RHYTHM, +S1, +S2 - GI/Abdominal Exam GI & Abdominal Exam: Diminished Bowel Sounds, Soft. absent: Tenderness - Rectal Exam Rectal Exam: Deferred - Exam Exam: NORMAL INSPECTION - Extremities Exam Extremities exam: Positive for: pedal edema, tenderness. Negative for: calf tenderness, pedal pulses present - Back Exam Back exam: absent: CVA tenderness (L), CVA tenderness (R) - Neurological Exam Neurological exam: Alert, CN II-XII Intact, Oriented x3, Reflexes Normal - Psychiatric Exam Psychiatric exam: Normal Mood - Skin Skin Exam: Dry, Intact Results - Vital Signs Recent Vital Signs: Last Vital Signs Temp 97.9 F 04/30/17 08:35 Pulse 94 H 04/30/17 08:35 Resp 20 04/30/17 08:35 BP 153/79 H 04/30/17 08:35 Pulse Ox 95 04/30/17 08:35 - Labs Labs: Laboratory Results - last 24 hr 04/30/17 06:10 PT 19.5 H INR 1.7 H Assessment & Plan (1) Deep venous thrombosis of lower extremity Status: Acute (2) Essential hypertension Status: Acute (3) Fall Status: Acute (4) Foot sprain Status: Acute (5) Head injury, closed, without LOC Status: Acute (6) Intractable back pain Status: Acute (7) Obesity Status: Acute (8) Rib contusion Status: Acute - Assessment and Plan (Free Text) Assessment: cont IV Rocephin if UTI recurs will need eval/ urodynamic studies and possible cysto
[2017-04-30] MEDS: AZITHROMYCIN 500 MG/NS 250 ML IVPB SCH (16:53)
[2017-04-30] MEDS: cefTRIAXone 1 gm/NS 100ML IVPB SCH (16:55)
[2017-05-01] MEDS: Multivitamin Vitamin B Complex (Nephro-Vite) Tab PO SCH (08:45)
[2017-05-01] MEDS: HCTZ/Losartan 12.5/50 Tab PO SCH (08:45)
[2017-05-01] MEDS: Lactobacillus Acidophilus 500 MU Cap PO SCH ×2 (08:46→17:03)
--- NOTE | 2017-05-01 13:47 | CP.PCM.CON ---
History of Present Illness - History of Present Illness History of Present Illness: Dr Long PMR consultation on Carola Stack, born 1935, who has been admitted to [facility] TCU for continued therapy given initial admission with intractable right lumbar pain with pain into the right LE. MRI did show multi- level abnormalities with foraminal encroachment. There were no fracture noted on imaging studies She has improved function since admission. Using a RW for ambulation. Review of Systems - Constitutional Constitutional: absent: Anorexia, Chills - EENT Nose/Mouth/Throat: absent: Nasal Congestion - Cardiovascular Cardiovascular: absent: Chest Pain - Respiratory Respiratory: absent: Dyspnea - Gastrointestinal Gastrointestinal: absent: Abdominal Pain, Constipation - Musculoskeletal Musculoskeletal: Abnormal Gait, Back Pain - Neurological Neurological: absent: Abnormal Movements, Dizziness - Psychiatric Psychiatric: absent: Anxiety Past Patient History - Infectious Disease Hx of Infectious Diseases: None - Tetanus Immunizations Tetanus Immunization: Unknown - Past Medical History & Family History Past Medical History?: Yes - Past Social History Smoking Status: Never Smoked Alcohol: None Drugs: Denies Home Situation {Lives}: Alone - CARDIAC Hx Hypertension: Yes - PULMONARY Hx Respiratory Disorders: No - NEUROLOGICAL Hx Neurological Disorder: No - HEENT Hx HEENT Problems: No - RENAL Hx Chronic Kidney Disease: No - ENDOCRINE/METABOLIC Hx Endocrine Disorders: No - HEMATOLOGICAL/ONCOLOGICAL Hx Blood Disorders: No Hx AIDS: No Hx Human Immunodeficiency Virus (HIV): No Other/Comment: DVT -left leg - INTEGUMENTARY Hx Dermatological Problems: No - MUSCULOSKELETAL/RHEUMATOLOGICAL Hx Falls: Yes (in 3 months fall x10) - GASTROINTESTINAL Hx Gastrointestinal Disorders: No - GENITOURINARY/GYNECOLOGICAL Hx Genitourinary Disorders: No - PSYCHIATRIC Hx Depression: No Hx Substance Use: No - SURGICAL HISTORY Hx Cholecystectomy: Yes Other/Comment: dvt - ANESTHESIA Hx Anesthesia: Yes Hx Anesthesia Reactions: No Hx Malignant Hyperthermia: No Meds Allergies/Adverse Reactions: Allergies Allergy/AdvReac Type Severity Reaction Status Date / Time No Known Allergies Allergy Verified 04/28/17 16:15 - Medications Medications: Current Medications Acetaminophen (Tylenol 325mg Tab) 650 mg PO Q4 PRN PRN Reason: Pain, Mild (1-3) Last Admin: 04/30/17 17:59 Dose: 650 mg Alprazolam (Xanax) 0.25 mg PO Q12 [facility] Stop: 05/05/17 21:01 Last Admin: 05/01/17 08:49 Dose: 0.25 mg Cholecalciferol (Vitamin D) 2,000 iu PO DAILY [facility] Last Admin: 05/01/17 08:45 Dose: 2,000 iu HCTZ/Losartan Potassium (Hyzaar 12.5 Mg-50 Mg) 1 tab PO DAILY [facility] Last Admin: 05/01/17 08:45 Dose: 1 tab Azithromycin 500 mg/ Sodium (Chloride) 250 mls @ 250 mls/hr IVPB DAILY@1700 [facility] Last Admin: 04/30/17 16:53 Dose: 250 mls/hr Ceftriaxone Sodium 1 gm/ (Sodium Chloride) 100 mls @ 100 mls/hr IVPB DAILY@ 1700 [facility] Last Admin: 04/30/17 16:55 Dose: 100 mls/hr Lactobacillus Acidophilus (Bacid Acidophilus) 1 cap PO BID [facility] Last Admin: 05/01/17 08:46 Dose: 1 cap Lactulose (Enulose) 20 gm PO DAILY PRN PRN Reason: Constipation Metoprolol Tartrate (Lopressor) 50 mg PO DAILY [facility] Last Admin: 05/01/17 08:45 Dose: 50 mg Tramadol HCl (Ultram) 50 mg PO Q6 PRN PRN Reason: Pain, moderate (4-7) Last Admin: 05/01/17 11:04 Dose: 50 mg Vitamin B Complex/Vit C/Folic Acid (Nephro-Ruba) 1 tab PO DAILY [facility] Last Admin: 05/01/17 08:45 Dose: 1 tab Physical Exam - Constitutional Appears: Non-toxic, No Acute Distress - Head Exam Head Exam: ATRAUMATIC, NORMAL INSPECTION, NORMOCEPHALIC - Eye Exam Eye Exam: EOMI - ENT Exam ENT Exam: Mucous Membranes Moist - Respiratory Exam Respiratory Exam: NORMAL BREATHING PATTERN - Cardiovascular Exam Cardiovascular Exam: REGULAR RHYTHM - GI/Abdominal Exam GI & Abdominal Exam: absent: Distended - Extremities Exam Extremities exam: Negative for: calf tenderness - Neurological Exam Neurological exam: Alert, CN II-XII Intact, Oriented x3 - Psychiatric Exam Psychiatric exam: Normal Affect, Normal Mood Results - Vital Signs Recent Vital Signs: Last Vital Signs Temp 97.9 F 05/01/17 08:26 Pulse 78 05/01/17 08:45 Resp 20 05/01/17 08:26 BP 120/74 05/01/17 08:45 Pulse Ox 95 05/01/17 08:26 - Labs Labs: Laboratory Results - last 24 hr 05/01/17 05:30 PT 19.1 H INR 1.7 H Assessment & Plan - Assessment and Plan (Free Text) Plan: PT/OT to continue to help increase functional independence Pain: controlled, I do not want to start meds stronger than Tramadol for Carola Vascular: no evidence of DVT GI: No evidence of constipation or diarrhea Patient continues to be an excellent TCU rehabilitation candidate and will have continued focused PT, OT and recreational therapy to help facilitate a safe and appropriate d/c plan
[2017-05-01] MEDS: AZITHROMYCIN 500 MG/NS 250 ML IVPB SCH (17:01)
[2017-05-01] MEDS: cefTRIAXone 1 gm/NS 100ML IVPB SCH (17:01)
[2017-05-02] MEDS: Multivitamin Vitamin B Complex (Nephro-Vite) Tab PO SCH (09:02)
[2017-05-02] MEDS: HCTZ/Losartan 12.5/50 Tab PO SCH (09:03)
[2017-05-02] MEDS: Lactobacillus Acidophilus 500 MU Cap PO SCH ×2 (09:04→17:06)
[2017-05-02] MEDS ORDERED: Enoxaparin 40 mg Syringe SC ONE (10:00)
[2017-05-02] MEDS: cefTRIAXone 1 gm/NS 100ML IVPB SCH (17:04)
[2017-05-02] MEDS: AZITHROMYCIN 500 MG/NS 250 ML IVPB SCH (17:05)
[2017-05-02] MEDS ORDERED: Enoxaparin 60 mg Syringe SC ONE (21:00)
[2017-05-03] MEDS ORDERED: Enoxaparin 150 mg Syringe SC SCH (09:00)
[2017-05-03] MEDS: Multivitamin Vitamin B Complex (Nephro-Vite) Tab PO SCH (10:09)
[2017-05-03] MEDS: Enoxaparin 100 mg Syringe SC SCH (10:09)
[2017-05-03] MEDS: Lactobacillus Acidophilus 500 MU Cap PO SCH ×2 (10:09→17:20)
[2017-05-03] MEDS: HCTZ/Losartan 12.5/50 Tab PO SCH (10:09)
[2017-05-03] MEDS: cefTRIAXone 1 gm/NS 100ML IVPB SCH (17:26)
[2017-05-03] MEDS: AZITHROMYCIN 500 MG/NS 250 ML IVPB SCH (17:27)
[2017-05-03] MEDS ORDERED: Enoxaparin 40 mg Syringe SC ONE (21:00)
[2017-05-04] MEDS: Lactobacillus Acidophilus 500 MU Cap PO SCH ×2 (09:02→17:04)
[2017-05-04] MEDS: Enoxaparin 100 mg Syringe SC SCH (09:02)
[2017-05-04] MEDS: Multivitamin Vitamin B Complex (Nephro-Vite) Tab PO SCH (09:02)
[2017-05-04] MEDS: HCTZ/Losartan 12.5/50 Tab PO SCH (09:02)
[2017-05-04] MEDS: cefTRIAXone 1 gm/NS 100ML IVPB SCH (17:05)
[2017-05-04] MEDS: AZITHROMYCIN 500 MG/NS 250 ML IVPB SCH (17:06)
[2017-05-05] MEDS: Enoxaparin 100 mg Syringe SC SCH (08:43)
[2017-05-05] MEDS: HCTZ/Losartan 12.5/50 Tab PO SCH (08:43)
[2017-05-05] MEDS: Multivitamin Vitamin B Complex (Nephro-Vite) Tab PO SCH (08:43)
[2017-05-05] MEDS: Lactobacillus Acidophilus 500 MU Cap PO SCH ×2 (10:32→16:14)
[2017-05-06] MEDS: Enoxaparin 100 mg Syringe SC SCH (08:45)
[2017-05-06] MEDS: HCTZ/Losartan 12.5/50 Tab PO SCH (08:45)
[2017-05-06] MEDS: Multivitamin Vitamin B Complex (Nephro-Vite) Tab PO SCH (08:46)
[2017-05-06] MEDS: Lactobacillus Acidophilus 500 MU Cap PO SCH ×2 (08:48→17:27)
--- NOTE | 2017-05-06 14:55 | PN ---
DATE: 05/06/2017 SUBJECTIVE: The patient was seen and examined, H and P was noted. The patient remains in transitional care unit *------*. The patient feels much better, able to ambulate with a walker. No chest pain or shortness of breath. PHYSICAL EXAMINATION GENERAL: The patient is in no acute distress. VITAL SIGNS: Stable. HEART: S1 and S2 normal, regular. LUNGS: Good bilateral air entry. ABDOMEN: Soft and nontender. EXTREMITIES: No edema. No calf swelling or tenderness. No acute ischemia. *------*. DIAGNOSTIC DATA: Available diagnostic data reviewed. INR still therapeutic. Overall, the patient is clinically stable. The patient has much improved. Needs stabilization for INR, otherwise the patient is clinically stable. PLAN: As ordered. Moisés Meek MD
--- NOTE | 2017-05-06 15:51 | CON ---
Dr. Moisés Meek Patient seen in examining room ___ Patient remains in transitional care for complains of multiple side ___ pain currently medication ___ ROS: No chest pain, no SOB Physical exam: GEN: Patient is in no acute distress. Vitals signs are stable. Neck: Supple Lungs:___Good bilateral exchange. Heart: ___ Ext: No edema. No clubbing. No tenderness. No ischemia. Abdomen: Soft, Non-tender. Diagnosis: ___ Patient is clinically stable___. [employer]
[2017-05-06 20:58] VITALS: TEMP 97.5; O2SAT 99
[2017-05-07 07:59] VITALS: PULSE 89
[2017-05-07] MEDS: Multivitamin Vitamin B Complex (Nephro-Vite) Tab PO SCH (08:31)
[2017-05-07] MEDS: HCTZ/Losartan 12.5/50 Tab PO SCH (08:32)
[2017-05-07] MEDS: Lactobacillus Acidophilus 500 MU Cap PO SCH ×2 (08:35→16:05)
--- NOTE | 2017-05-07 11:23 | PN ---
SUBJECTIVE: The patient was seen and examined, *------* noted. The patient remains in transitional care unit. The patient feels okay. No specific complaint of chest pain or shortness of breath. The patient is ambulatory. PHYSICAL EXAMINATION: GENERAL: The patient is in no acute distress. VITAL SIGNS: Stable. HEART: S1 and S2 normal, regular. LUNGS: Good bilateral air exchange. ABDOMEN: Soft and nontender. EXTREMITIES: No edema. No calf swelling or tenderness. No acute ischemia. UTILITY LOCATE TECHNICIAN: Essentially unchanged. DIAGNOSTIC DATA: Available diagnostic data reviewed. INR is 1.9. Overall, the patient is clinically stable, has improved. The patient will be going home. The patient will be followed up by primary care physician. PLAN: As ordered. Treatment plan discussed with the patient. Moisés Meek MD
[2017-05-07 16:07] VITALS: BP 139/78
--- NOTE | 2017-05-08 16:14 | PN ---
Dr. Moisés Meek Progress note Patient seen in exam Patient remains in transit care ROS: No chest pain, no SOB PE: GEN: Patient is in no acute distress. Vital signs are stable. Heart: S1 S2 Lungs: Good bilateral exchange. Abdomen: Soft, non-tender. Extremities: No edema, no clubbing, no tenderness, no ischemia. Diagnostic____ : ____ for now patient is in good medical condition, stable. Moisés Meek MDD
--- NOTE | 2017-05-11 10:23 | PN ---
Progress Note: Pt has been examined and consulted, which has been noted and appreciated. * Complaints of abdominal pain and right shoulder pain consult with [29.5- 30.7]. PE: vitals are normal, and is in NAD distress. Heart: RRR, No Murmur Lungs: Bilateral breath sounds, clear Abdomen: Soft, nontender, nondistended Extremities: No edema, tenderness, clubbing or acute ischemia. Diagnostic Data; All available diagnostic data has been reviewed, and the pt is medically stable. Moisés Meek MD
--- NOTE | 2017-05-11 10:27 | PN ---
CC: Patient remains in the trasition period between [24.8-26.6]. PE: Patient is in NAD. His vitals are stable, his heart exam was normal, [33- 34.8]. Patients abdomen is soft, nontender. [38.1-39.6] no tenderness, no achiness, no ischemia. [41.2-42.3]. Diagnostic Data: All diagnostic data has been reviewed. Shoulder axis shows 30. Plan: Patient plan discussed with patient. Moisés Meek MD
--- NOTE | 2017-05-11 10:54 | HP ---
Dr. Moisés Meek Admission note for transitional care Chief complaint: Patient was transferred from medical floor for compression fracture. HPI: 81 y/o female with PMx of hypertension, varicose veins, osteoarthritis , was found to have a compression fracture, for which patient was evaluated in medical floor. Orthopaedic a surgery consult and interventions, the patient for surgery was indicated. Patient was admitted to medical floor patient was transferred to transitional care and Physical Therapy ROS: at this time is positive for: and shoulder pain Negative for headache, dizziness, syncope (?), unconsciousness No Chest pain, no SOB, diarrhea or constipation.____ ROS was unremarkable PMHx: Significant for Hypertension, varicose veins, and osteoarthritis, Soc Hx: Patient is currently no smoker, no drinker, no substance abuse Medication: Patient is in multiple medications which____ FMHx: non contributory PE: GEN: BP:130/ Neck: Supple, no thyromegaly. no adenopathy Heart: S1 S2 Lungs: Good bilateral exchange Abdomen: Soft, Non-tender, no organomegaly, ____ Extremities: No edema, no clubbing, no tenderness, no ischemia. Patient is alert, awake and oriented x3 Diagnostic: : Compression fracture, hypertension, osteoarthritis, varicose veins. Moisés Meek MD
--- NOTE | 2017-05-11 11:00 | HP ---
Dr. Moisés Meek Admission note for transitional care Chief complaint: Patient was transferred from medical floor for compression fracture. HPI: 81 y/o female with PMx of hypertension, varicose veins, osteoarthritis, suffered a fall and having back pain. Patient was found to have a compression fracture, for which patient was evaluated in medical floor. Orthopedic and neuro surgery consult and interventions, the patient for surgery was indicated. Patient was admitted to medical floor for surgery and then the patient was transferred to transitional care for further optimization and Physical Therapy ROS: at this time is positive for: Back pain, leg pain and shoulder pain Negative for headache, dizziness, syncope , loss of unconsciousness No Chest pain, no SOB, diarrhea or constipation. ROS was unremarkable PMHx: Significant for Hypertension, varicose veins, and osteoarthritis, Soc Hx: Patient is currently no smoker, no drinker, no substance abuse Medication: Patient is in multiple medications which FMHx: non contributory PE: GEN: BP:130/77 Neck: Supple, no thyromegaly. no adenopathy Heart: S1 S2 Lungs: Good bilateral exchange Abdomen: Soft, Non-tender, no organomegaly, Extremities: No edema, no clubbing, no tenderness, no ischemia. Patient is alert, awake and oriented x3 Diagnostic Data: All available diagnostic data reviewed. Impression: Compression fracture, status post fall, hypertension, osteoarthritis, varicose veins. Moisés Meek MD
--- NOTE | 2017-05-12 12:56 | CP.PCM.PN ---
Subjective - Date & Time of Evaluation Date of Evaluation: 05/04/17 Time of Evaluation: 07:00 - Subjective Subjective: The pt was seen and examined today, pt had no associated complaints and denies any hepatic pain or symptoms of cp or sob. Objective - Vital Signs/Intake and Output Vital Signs (last 24 hours): Temp Pulse Resp BP Pulse Ox 97.5 F L 89 20 139/78 99 05/07/17 07:58 05/07/17 08:32 05/07/17 07:58 05/07/17 16:06 05/07/17 07:58 - Labs Labs: PT 22.0 Seconds (9.8-13.1) H 05/07/17 06:00 INR 1.9 (0.9-1.2) H 05/07/17 06:00 - Additional Findings Additional findings: On examination, the pt was awake and alert, in NAD. Pt vital signs are normal, heart was normal no murmur RRR. Lungs are clear, abdomen is soft and nontender. Pts extremities do not have any edema, tenderness, clubbing or acute ischemia. Assessment and Plan - Assessment and Plan (Free Text) Assessment: All available diagnostics were reviewed, and INR is 1.3. _ medical extremes as ordered. Patient was personally seen and examined by me in rounds with residents. Available labs and diagnostic data reviewed. Case, Patient's condition and management plan discussed with residents in rounds. Agree with resident's documentation. Plan: As ordered. Moisés Meek MD
--- NOTE | 2017-05-21 15:53 | CP.PCM.PN ---
Subjective - Date & Time of Evaluation Date of Evaluation: 05/03/17 Time of Evaluation: 07:00 - Subjective Subjective: Patient seen in examining room as noted Patient remains in transitional care for complains of multiple side jointpain ___current medication ROS: No chest pain, no SOB Objective - Vital Signs/Intake and Output Vital Signs (last 24 hours): Temp Pulse Resp BP Pulse Ox 97.5 F L 89 20 139/78 99 05/07/17 07:58 05/07/17 08:32 05/07/17 07:58 05/07/17 16:06 05/07/17 07:58 - Labs Labs: PT 22.0 Seconds (9.8-13.1) H 05/07/17 06:00 INR 1.9 (0.9-1.2) H 05/07/17 06:00 Diagnostic data available - diagnostic data reviewed: ___4.4 - Additional Findings Additional findings: GEN: Patient is in no acute distress. Vitals signs are stable. Neck: Supple Lungs:Good bilateral air entry. Heart: S1, S2, normal rhythm Ext: No edema. No clubbing. No tenderness. No ischemia. Abdomen: Soft, Non-tender. COMPLIANCE OFFICER: Esentially unchanged Assessment and Plan - Assessment and Plan (Free Text) Assessment: Overall patient is clinically stable. Plan: Plan as ordered
--- NOTE | 2017-05-21 16:34 | CP.PCM.PN ---
Subjective - Date & Time of Evaluation Date of Evaluation: 05/21/17 Time of Evaluation: 07:00 - Subjective Subjective: Patient seen and examined as noted Patient remains in transitional care unit. Patient is but is comfortable ROS: No chest pain, no SOB Objective - Vital Signs/Intake and Output Vital Signs (last 24 hours): Temp Pulse Resp BP Pulse Ox 97.5 F L 89 20 139/78 99 05/07/17 07:58 05/07/17 08:32 05/07/17 07:58 05/07/17 16:06 05/07/17 07:58 - Labs Labs: PT 22.0 Seconds (9.8-13.1) H 05/07/17 06:00 INR 1.9 (0.9-1.2) H 05/07/17 06:00 - Additional Findings Additional findings: GEN: Patient is in no acute distress. Vital signs are stable. Heart: S1, S2 normal rhythm Lungs: Good bilateral air exchange. Abdomen: Soft, non-tender. Extremities: No edema, no clubbing, no tenderness, no acute ischemia. FIRE INVESTIGATOR exam: essentially unchanged Assessment and Plan - Assessment and Plan (Free Text) Assessment: Overall patient is in good medical condition - stable. Patient was personally seen and examined by me in rounds with residents. Available labs and diagnostic data reviewed. Case, patient's condition and management plan discussed with residents in rounds. Agree with resident's progress not. Plan: As ordered. Plan: Plan as ordered
--- NOTE | 2017-05-21 16:42 | CP.PCM.PN ---
Subjective - Date & Time of Evaluation Date of Evaluation: 05/01/17 Time of Evaluation: 07:00 - Subjective Subjective: Pt has been examined and consulted, which has been noted and appreciated. Pt complains of abdominal pain and right shoulder pain controlled with medications. ROS: No chest pain no SOB Objective - Vital Signs/Intake and Output Vital Signs (last 24 hours): Temp Pulse Resp BP Pulse Ox 97.5 F L 89 20 139/78 99 05/07/17 07:58 05/07/17 08:32 05/07/17 07:58 05/07/17 16:06 05/07/17 07:58 - Labs Labs: PT 22.0 Seconds (9.8-13.1) H 05/07/17 06:00 INR 1.9 (0.9-1.2) H 05/07/17 06:00 All available diagnostic data has been reviewed. - Additional Findings Additional findings: Pt's vitals are normal, and is in NAD distress. Heart: S1, S2, normal rhythm Lungs: Good bilateral air entry Abdomen: Soft, nontender, non-distended Extremities: No edema, tenderness, clubbing or acute ischemia. EXTENSION SERVICE SUPERVISOR exam: essentially unchanged Assessment and Plan - Assessment and Plan (Free Text) Assessment: Overall, the pt is medically stable Plan: Plan has been ordered and discussed with the patient.
--- NOTE | 2017-05-21 17:00 | CP.PCM.PN ---
Subjective - Date & Time of Evaluation Date of Evaluation: 04/30/17 Time of Evaluation: 07:00 - Subjective Subjective: Patient remains in the trasitional care unit. ___. Objective - Vital Signs/Intake and Output Vital Signs (last 24 hours): Temp Pulse Resp BP Pulse Ox 97.5 F L 89 20 139/78 99 05/07/17 07:58 05/07/17 08:32 05/07/17 07:58 05/07/17 16:06 05/07/17 07:58 - Labs Labs: PT 22.0 Seconds (9.8-13.1) H 05/07/17 06:00 INR 1.9 (0.9-1.2) H 05/07/17 06:00 Diagnostic Data available: Diagnostic data has been reviewed. Shoulder axis shows 30. - Additional Findings Additional findings: Patient is in NAD. His vitals are stable. Hheart exam: S1, S2 normal regular Lungs: good bilateral air entry. Abdomen: soft nontender Extremities: no edema, no acute swelling, no tenderness, no acute ischemia. AUTOMOBILE MECHANIC RADIATOR exam: essentially unchanged. Assessment and Plan - Assessment and Plan (Free Text) Plan: Patient plan discussed with patient.
--- NOTE | 2017-05-22 12:14 | CP.PCM.CON ---
History of Present Illness - History of Present Illness History of Present Illness: Chief complaint: Patient was transferred from medical floor for compression fracture. HPI: This is an 81 y/o female with PMhx of hypertension, varicose veins, osteoarthritis. Suffered a fall and had back pain so patient was brought to medical care. Patient was found to have a compression fracture, for which patient was evaluated in medical floor. Orthopaedic and surgery consult and interventions noted. The patient was opted for critical management. No surgery was indicated. Patient was admitted to medical floor. Patient was transferred to transitional care for further evaluation and physical therapy Review of Systems - Review of Systems Review of Systems: ROS: at this time is positive for: back pain, leg pain, and shoulder pain Negative for headache, dizziness, syncope, loss of consciousness No Chest pain, no SOB, nausea, vomitting diarrhea or constipation, any new joint or extremity pain ROS of all organ systems was unremarkable Past Patient History - Infectious Disease Hx of Infectious Diseases: None - Tetanus Immunizations Tetanus Immunization: Unknown - Past Medical History & Family History Past Medical History?: Yes Pertinent Family History: PMHx: Significant for hypertension, varicose veins, ___ and osteoarthritis Past surgical Hx: non-contributory Soc Hx: Patient is currently no smoker, no drinker, no substance abuse Medication: Patient is in multiple medications which ___ FMHx: non contributory - Past Social History Smoking Status: Never Smoked Alcohol: None Drugs: Denies Home Situation {Lives}: Alone - CARDIAC Hx Hypertension: Yes - PULMONARY Hx Respiratory Disorders: No - NEUROLOGICAL Hx Neurological Disorder: No - HEENT Hx HEENT Problems: No - RENAL Hx Chronic Kidney Disease: No - ENDOCRINE/METABOLIC Hx Endocrine Disorders: No - HEMATOLOGICAL/ONCOLOGICAL Hx Blood Disorders: No Hx AIDS: No Hx Human Immunodeficiency Virus (HIV): No Other/Comment: DVT -left leg - INTEGUMENTARY Hx Dermatological Problems: No - MUSCULOSKELETAL/RHEUMATOLOGICAL Hx Falls: Yes (in 3 months fall x10) - GASTROINTESTINAL Hx Gastrointestinal Disorders: No - GENITOURINARY/GYNECOLOGICAL Hx Genitourinary Disorders: No - PSYCHIATRIC Hx Depression: No Hx Substance Use: No - SURGICAL HISTORY Hx Cholecystectomy: Yes Other/Comment: dvt - ANESTHESIA Hx Anesthesia: Yes Hx Anesthesia Reactions: No Hx Malignant Hyperthermia: No Meds Allergies/Adverse Reactions: Allergies Allergy/AdvReac Type Severity Reaction Status Date / Time No Known Allergies Allergy Verified 04/28/17 16:15 Physical Exam - Additional Findings Additional findings: Vital signs Pulse 80 Respirations 18. BP:130/77 HEENT: pupils___ no JVD, no thyromegaly. no lympyhadenopathy, no nystagmus, atraumatic, normocephalic Heart: S1, S2 normal, regular. No rubs or gallops. Lungs: Good bilateral air exchange, no rales or rhonchi. Abdomen: Soft, non-tender, no organomegaly, normal bowel sounds Extremities: No edema, no clubbing, no tenderness, no acute ischemia. OVERHEAD DISTRIBUTION ENGINEER: Patient is alert, awake and oriented x3 Results - Vital Signs Recent Vital Signs: Last Vital Signs Temp 97.5 F L 05/07/17 07:58 Pulse 89 05/07/17 08:32 Resp 20 05/07/17 07:58 BP 139/78 05/07/17 16:06 Pulse Ox 99 05/07/17 07:58 - Labs Labs: Diagnostic data available: diagnostic data reviewed. Assessment & Plan - Assessment and Plan (Free Text) Assessment: Compression fracture, ___ ,hypertension, osteoarthritis, varicose veins. Patient was personally seen and examined by me in rounds with residents. Available labs and diagnostic data reviewed. Case, patient's condition and management plan discussed with residents in rounds. Agree with resident's progress not. Plan: As ordered. Plan: Plan as ordered
--- NOTE | 2017-05-25 15:24 | CP.PCM.CON ---
History of Present Illness - History of Present Illness History of Present Illness: 81 year old woman, with previous history of DVT, HTN, told the emergency room care that she had constant left pain in her buttock radiating down to her left leg after a fall last night. She denies numbness or weakness, urinary problems, bowel movement dysfunction. She say it is extremely painful for her to walk. Today she told me that the reason she came to the hospital was because she had swelling in the right foot and leg. She says that she has chronic back pain for many years. She is unable to tell me when the leg and hip pain started. She first said that it was accompanying the back pain for many years, then she said it was after a fall. She then said she has multiple falls. Her history is not coherent. She has history of bladder problem, possibly a bladder tumor. Again it is hard to tell from her report. She also has problem with her bowel. Again it is impossible to tell based on what she is telling me. She also commented that she has not had any specific treatment for her back issues. Past Patient History - Infectious Disease Hx of Infectious Diseases: None - Tetanus Immunizations Tetanus Immunization: Unknown - Past Medical History & Family History Past Medical History?: Yes - Past Social History Smoking Status: Never Smoked Alcohol: None Drugs: Denies Home Situation {Lives}: Alone - CARDIAC Hx Hypertension: Yes - PULMONARY Hx Respiratory Disorders: No - NEUROLOGICAL Hx Neurological Disorder: No - HEENT Hx HEENT Problems: No - RENAL Hx Chronic Kidney Disease: No - ENDOCRINE/METABOLIC Hx Endocrine Disorders: No - HEMATOLOGICAL/ONCOLOGICAL Hx Blood Disorders: No Hx AIDS: No Hx Human Immunodeficiency Virus (HIV): No Other/Comment: DVT -left leg - INTEGUMENTARY Hx Dermatological Problems: No - MUSCULOSKELETAL/RHEUMATOLOGICAL Hx Falls: Yes (in 3 months fall x10) - GASTROINTESTINAL Hx Gastrointestinal Disorders: No - GENITOURINARY/GYNECOLOGICAL Hx Genitourinary Disorders: No - PSYCHIATRIC Hx Depression: No Hx Substance Use: No - SURGICAL HISTORY Hx Cholecystectomy: Yes Other/Comment: dvt - ANESTHESIA Hx Anesthesia: Yes Hx Anesthesia Reactions: No Hx Malignant Hyperthermia: No Meds Allergies/Adverse Reactions: Allergies Allergy/AdvReac Type Severity Reaction Status Date / Time No Known Allergies Allergy Verified 04/28/17 16:15 Physical Exam - Additional Findings Additional findings: She has 20 degree straight leg raising on the left. She has otherwise excellent strength. She has no sensory deficit. I did not ambulate her. Results - Vital Signs Recent Vital Signs: Last Vital Signs Temp 97.5 F L 05/07/17 07:58 Pulse 89 05/07/17 08:32 Resp 20 05/07/17 07:58 BP 139/78 05/07/17 16:06 Pulse Ox 99 05/07/17 07:58 - Labs Labs: She has X-rays for Hip and Pelvis which are not read. There are multiple degenerative disc disease areas in the X rays of the lumbar spine. There is CT scan showing of the pelvis which is read as degenerative changes L5/S1, degenerative changes public syntesis bilateral SI joints. Assessment & Plan - Assessment and Plan (Free Text) Plan: Im going to recommend that she be evaluated by Physical Therapy. We obtain an MRI of her lumbar spine. That unless we find something grossly significant on the MRI, that would not be benefited by a trial of therapy, that we institute physical therapy conservative measures possibly pain management for the consideration of surgery.
== END 2017-05-07 16:30 | disposition home or self-care (01) | DRG 552 ==
LOC: H.TCU 16:17
PROVIDERS: ADMIT Internal Medicine; ATTEND Internal Medicine
PROC: F07M6FZ Therapeutic Exercise Treatment of Musculoskeletal System - Whole Body using Assistive, Adaptive, Supportive or Protective Equipment (ICD-10-PCS; principal; 2017-04-28)
PROC: F08Z4FZ Home Management Treatment using Assistive, Adaptive, Supportive or Protective Equipment (ICD-10-PCS; 2017-04-28)
PROC: F07Z9FZ Gait Training/Functional Ambulation Treatment using Assistive, Adaptive, Supportive or Protective Equipment (ICD-10-PCS; 2017-04-28)
DX: M48.06 Spinal stenosis, lumbar region (principal); N39.0 Urinary tract infection, site not specified; I10 Essential (primary) hypertension; E66.9 Obesity, unspecified; I83.90 Asymptomatic varicose veins of unspecified lower extremity; Z90.49 Acquired absence of other specified parts of digestive tract; M19.90 Unspecified osteoarthritis, unspecified site; M25.511 Pain in right shoulder; M54.5 Low back pain; Z91.81 History of falling; Z86.718 Personal history of other venous thrombosis and embolism; Z79.01 Long term (current) use of anticoagulants